=== PATIENT | male | born 1950 | race Caucasian/White ===

== ENCOUNTER → 2018-10-30 | Outpatient (CLI) | payer OTHER ==
[~2018-10-30] VITALS: Ht 185.4 cm; Wt 101.6 kg
[~2018-10-30] MED LIST: ACETAMINOPHEN325 M1 OR; CENTRUM SILVER1 EAC2 PO; CO Q-10100 MG PO; COUMADIN6 MG; COUMADIN6 MG PO; DIPHENHYDRAMINE25 M3 PO; FLUTICASONE PRO16 GM NASAL; GLUCOSAMINE SU500 MG PO; LIPITOR 20 MG T20 M1 PO; LOVASTAT40 OR; MELOXICAM7.5 MG PO; MOBIC7.5 MG PO; PERCOCET 10-321 EACH; PERCOCET 10-321 EACH PO; ZANTAC 150MG T150 MG PO
--- NOTE | ~2018-10-30 | P ---
[facility] [place] [address] PROCEDURE REPORT Name: BERTIN ISBELL Room #: REG [facility]#: [id number] Admission: 10/30/18 ������������������ Attend Phys: Mk Sams MD Discharge: ������������������ Date of : 48 Report #: [id number] THIS REPORT FOR: //name// CC: Mk Soto MD OUTPATIENT COLONOSCOPY REPORT BRIEF HISTORY: The patient is a 68-year-old male with a family history of colon cancer in mother when she was in her 50s. He also has a history of colon adenomas. POSTOPERATIVE DIAGNOSES: 1. Diminutive cecal polyp. 2. Small internal hemorrhoids. MEDICATIONS: Deep sedation with propofol per anesthesia. SPECIMEN: Cecal polyp. ESTIMATED BLOOD LOSS: 3 mL. PROCEDURE: Colonoscopy to the cecum and terminal ileum with biopsy. FINDINGS: Prior to propofol sedation, procedure of colonoscopy was discussed with the patient as well as potential risks and its complications. He indicates he understands and desire that we proceed. With the patient in the left lateral decubitus position, digital examination was completed, which revealed no abnormalities. Subsequently, the Olympus video colonoscope was introduced in the rectum and advanced under direct vision to the cecum. Done with minimal difficulty. The cecum was identified by the ileocecal valve and the appendiceal orifice. I was able to visualize the distal segment of the terminal ileum, which was inspected and noted to be unremarkable. At that point, the scope was slowly withdrawn and careful circumferential views obtained including retroflexing the scope in the ascending colon. Upon slow withdrawal of the scope, the prep was excellent. Mucosa was within normal limits, normal vascular pattern and normal light reflex. In the cecum, a diminutive polyp was seen and removed with biopsy forceps. The scope was further withdrawn and no additional neoplastic lesions were seen on today's examination. The mucosa was within normal limits, normal vascular pattern and normal light reflex. The scope was withdrawn through the entire colon. No other abnormalities were noted. The scope was withdrawn in the rectum and no abnormalities were seen. Upon retroflexion, small internal hemorrhoids were seen. The scope was withdrawn and the patient tolerated the procedure well. [facility] [address] [place] [address] PROCEDURE REPORT Name: AKILAHBERTINHEN Room #: REG [facility].#: [id number] Admission: 10/30/18 ������������������ Attend Phys: Mk Sams MD Discharge: ������������������ Date of : 48 Report #: [id number] CONDITION OF THE PATIENT UPON DISCHARGE: Following procedure, the patient drowsy, arousable, conversant and will be discharged to home when fully ambulatory INSTRUCTIONS TO THE PATIENT AND FAMILY AT THE TIME OF DISCHARGE: We will follow up on the path report. However, since his mother has had colon cancer at a fairly young age, we will have him return in 5 years for followup colonoscopy. We will follow up on the path and make additional recommendations if needed. His last colonoscopy was 4-1/2 years ago. Withdrawal time from the cecum was 10 minutes 14 seconds. ��������������������������������������������� ���������������������������������������� By: ��������������������������������������������� [id number] Mk Sams MD /nt
--- NOTE | ~2018-10-30 | P ---
[facility] [place] [address] PROCEDURE REPORT Name: BERTIN ISBELL Room #: REG [facility]#: [id number] Admission: 10/30/18 ������������������ Attend Phys: Mk Sams MD Discharge: ������������������ Date of : 48 Report #: [id number] THIS REPORT FOR: //name// CC: Mk Hendrix MD TYPE OF REPORT: Outpatient upper endoscopy report. BRIEF HISTORY: The patient is a 68-year-old male with a history of reflux and grade C erosive esophagitis in the past. He reports that his symptoms are under good control with ranitidine twice daily. However, he had complaints of frequent throat clearing and he does have some cough. He was recently seen by Dr. Isidro Hendrix who thought he had laryngopharyngeal reflux. In addition, he was treated for H. pylori in the past. PREOPERATIVE DIAGNOSIS: Persistent reflux symptoms on therapy and history of Helicobacter pylori. POSTOPERATIVE DIAGNOSES: 1. Mild diffuse gastritis. 2. A 3 cm sliding type hiatus hernia. MEDICATIONS: Deep sedation with propofol per Anesthesia. SPECIMEN: Biopsies of gastritis. ESTIMATED BLOOD LOSS: 3 mL. PROCEDURE: EGD with biopsy. FINDINGS: Prior to propofol sedation, procedure of upper endoscopy discussed and reviewed with the patient as well as potential risks and its complications. He indicates he understands and desires to proceed. DESCRIPTION OF PROCEDURE: With the patient in left lateral decubitus position, digital examination was completed, which revealed no abnormalities. Subsequently, the Olympus video endoscope was inserted in the cervical esophagus under direct vision without difficulty. Examination of this organ through its entire length revealed normal esophageal mucosa down the squamocolumnar junction. Squamocolumnar junction was intact. No ulcers or erosions were seen. There was no endoscopic evidence of Fraire mucosa. A stricture or mass was not seen. The scope was advanced in about 3 cm sliding type hiatus hernia. Mucosa in the hernia was intact and normal. The scope was advanced fully into the stomach, was examined on end view as well as retroflexed views. There was a pattern of diffuse gastritis, but no ulcers or erosions were seen. The [address] [address] PROCEDURE REPORT Name: AKILAHBERTIN VIDALES [id number] Admission: 10/30/18 ������������������ Attend Phys: Mk Sams MD Discharge: ������������������ Date of : 48 Report #: [id number] gastritis involving essentially the entire stomach. Upon retroflexion, the hiatus hernia was seen. No other abnormalities were noted. No mass lesions were seen. The pylorus, duodenal bulb and postbulbar sweep were all inspected and noted to be unremarkable. At that point, the scope was slowly withdrawn and careful circumferential views confirmed the above findings. The patient tolerated the procedure well. Biopsies taken of the gastritis. CONDITION OF THE PATIENT UPON DISCHARGE: Following the procedure, the patient drowsy and prepared for colonoscopy. INSTRUCTIONS TO THE PATIENT AND FAMILY AT THE TIME OF DISCHARGE: The patient is currently using ranitidine twice daily and I do not see obvious mucosal disease. However, he does have symptoms suggestive of reflux disease. At this point, suggest he try pantoprazole 40 mg daily and I have him try it for at least 3 months on a trial basis with regards to his ENT symptoms. If he has no change in symptomatology once wherever, he can discontinue after 3 months. However, if he has improvement of symptoms, he may try to titrate his pantoprazole to lower daily dose or intermittent use. He is return to see me in followup in the office if symptoms not improved. Proceed with colonoscopy at this time. ��������������������������������������������� ���������������������������������������� By: ��������������������������������������������� [id number] Mk Sams MD /meliza
== END ==
LOC: GI 07:46
DX: Z12.11 Encounter for screening for malignant neoplasm of colon (principal); K63.5 Polyp of colon; K57.30 Diverticulosis of large intestine without perforation or abscess without bleeding; Z86.010 Personal history of colon polyps; Z80.0 Family history of malignant neoplasm of digestive organs; K64.8 Other hemorrhoids; K21.0 Gastro-esophageal reflux disease with esophagitis; B96.81 Helicobacter pylori [H. pylori] as the cause of diseases classified elsewhere; K29.70 Gastritis, unspecified, without bleeding; K44.9 Diaphragmatic hernia without obstruction or gangrene; E78.5 Hyperlipidemia, unspecified; K21.9 Gastro-esophageal reflux disease without esophagitis; Z98.890 Other specified postprocedural states
CPT/HCPCS: 62110; 62900